=== PATIENT | female | born 1980 | race Caucasian/White ===

== ENCOUNTER → 2024-09-15 | Outpatient (CLI) | payer BC, SELFPAY ==
[2024-09-15 21:46] VITALS: PULSE 82; RESP 18
[2024-09-15 22:30] VITALS: PULSE 70; RESP 16
[2024-09-15 23:00] VITALS: PULSE 64; RESP 14
[2024-09-15 23:30] VITALS: PULSE 74; RESP 6
[2024-09-16] VITALS (9 sets, daily range): PULSE 68–74; RESP 6–16
== END | disposition home or self-care (01) ==
LOC: SLP 20:28
PROVIDERS: ATTEND Nurse Practitioner Family
DX: G47.33 Obstructive sleep apnea (adult) (pediatric) (principal); R51.9 Headache, unspecified; R53.83 Other fatigue; F41.9 Anxiety disorder, unspecified
CPT/HCPCS: 95810

== ENCOUNTER → 2024-09-20 | Outpatient (CLI) | payer SELFPAY ==
[2024-09-20 23:21] VITALS: PULSE 78; RESP 18
[2024-09-21] VITALS (13 sets, daily range): PULSE 70–78; RESP 10–20
== END | disposition home or self-care (01) ==
LOC: SLP 20:58
PROVIDERS: ATTEND Nurse Practitioner Family
DX: G47.33 Obstructive sleep apnea (adult) (pediatric) (principal)
CPT/HCPCS: 95811